=== PATIENT | female | born 1975 | race Two or more races ===

== ENCOUNTER 2022-05-31 02:48 | Inpatient (IN) ==
[2022-05-31] MEDS ORDERED: Morphine 4 MG/ML VIAL (1 ml) IV ONE ×3 (03:39→08:39)
[2022-05-31] MEDS ORDERED: Ondansetron 4 mg VIAL 2 MG/ML 2 ml VIAL IV ONE (03:39)
[2022-05-31 04:10] LABS: ABS Eosinophils 0.1 10^3/ul (0-0.6); ABS Lymphocytes 0.9 10^3/ul (1.0-4.8); ABS Monocytes 0.6 10^3/ul (0-0.8); ABS Neutrophils 10.8 10^3/ul (1.5-7.7); Eosinophil % 0.6 %; Hematocrit 42 % (35-47); Hemoglobin 13.8 g/dL (12.0-16.0); Lymphocyte % 7.3 %; Mean Corpuscular HGB Conc 33 g/dL (31-36); Mean Corpuscular Hemoglobin 29 pg (27-31); Mean Corpuscular Volume 87 fL (80-97); Mean Platelet Volume 10.1 fL (7.4-10.4); Platelet Count 135 10^3/uL (150-450); Red Blood Count 4.85 10^6 /uL (3.70-4.87); Red Cell Distribution Width 16 % (10-15); White Blood Count 12.3 10^3/uL (3.5-10.8)
[2022-05-31 04:39] LABS: ALT 13 U/L (7-52); AST 15 U/L (13-39); Albumin 4.3 g/dL (3.2-5.2); Alkaline Phosphatase 49 U/L (35-149); Anion Gap 9 mmol/L (2-11); Blood Urea Nitrogen 14 mg/dL (6-24); C Reactive Protein 17.26 mg/L (<8.01); CO2 Carbon Dioxide 24 mmol/L (22-32); Calcium 9.5 mg/dL (8.6-10.3); Chloride 103 mmol/L (101-111); Globulin 2.2 g/dL (2-4); Glucose 151 mg/dL (70-100); Lipase < 10 U/L (11.0-82.0); Potassium 4.2 mmol/L (3.5-5.0); Sodium 136 mmol/L (135-145); Total Protein 6.5 g/dL (6.4-8.9)
[2022-05-31] MEDS ORDERED: Iohexol 350 (CONTRAST) 500 ML MDV IV ONE (05:57)
[2022-05-31] MEDS ORDERED: Piperacillin/Tazobac ADVAN 3.375 GM in NS 0.9% 100 ml BAG 100 ML IV ONE (06:56)
[2022-05-31] MEDS ORDERED: fentaNYL 100 mcg/2 ml 50 MCG/ML VIAL IV PRN (08:56)
[2022-05-31] MEDS ORDERED: Ondansetron 4 mg VIAL 2 MG/ML 2 ml VIAL IV PRN ×2 (08:56→12:05)
[2022-05-31] MEDS ORDERED: Naloxone 0.4 mg VIAL 0.4 mg/ml 1 ml VIAL IV PRN (08:56)
[2022-05-31] MEDS ORDERED: Lactated Ringers 1000 ml BAG 1,000 ML IV SCH (09:00)
[2022-05-31] MEDS ORDERED: Ondansetron 4 mg VIAL 2 MG/ML 2 ml VIAL ONE ×2 (09:27→10:13)
[2022-05-31] MEDS ORDERED: Rocuronium 50 mg VIAL 10 mg/ml 5 ml VIAL (50 mg) ONE (10:13)
[2022-05-31] MEDS ORDERED: Midazolam 5 mg/5 ml VIAL 1 mg/ml 5 ml VIAL (5 mg) ONE (10:13)
[2022-05-31] MEDS ORDERED: Propofol 10 MG/ML 20 ML BTL ONE (10:13)
[2022-05-31] MEDS ORDERED: Acetaminophen IV 1 GM/100ML 1,000 MG/100 ML BAG IV ONE (10:13)
[2022-05-31] MEDS ORDERED: Lidocaine 2% PF 5 ML VIAL ONE (10:13)
[2022-05-31] MEDS ORDERED: fentaNYL 100 mcg/2 ml 50 MCG/ML VIAL ONE (10:13)
[2022-05-31] MEDS ORDERED: Dexamethasone IV 4 MG/ML VIAL 1 ml VIAL ONE (10:13)
[2022-05-31] MEDS ORDERED: Lidocaine 1% w EPI 1:200,000 SDV 30 ML VIAL ONE (10:21)
[2022-05-31] MEDS ORDERED: Bupivacaine 0.5% SDV PF 30ML VIAL ONE (10:22)
[2022-05-31] MEDS ORDERED: Phenylephrine 40 mcg/mL 10mL (400mcg) SYRINGE ONE (11:05)
[2022-05-31] MEDS ORDERED: NS 0.9% 1000 ml BAG 400 ML IV SCH (12:15)
[2022-05-31] MEDS ORDERED: NS 0.9% 250 ml 250 ML IV SCH (13:00)
[2022-05-31] MEDS ORDERED: Piperacillin/Tazobac 3.375 GM BAG ONE (13:06)
[2022-05-31] MEDS: Piperacillin/Tazobactam VIAL 3.375 GM in NS 0.9% 100 ml BAG 100 ML IVPB SCH ×2 (13:12→20:37)
[2022-06-01] MEDS: Piperacillin/Tazobactam VIAL 3.375 GM in NS 0.9% 100 ml BAG 100 ML IVPB SCH (05:48)
[2022-06-01 12:16] VITALS: BP 105/84
== END 2022-06-01 12:05 | disposition home or self-care (01) | DRG 225 ==
LOC: ED 02:48 → OR 10:58 → MEDTELE 14:34
PROVIDERS: ADMIT Surgery; ATTEND Surgery